=== PATIENT | male | born 1995 ===

== ENCOUNTER 2022-07-25 16:38 | Emergency (ER) | payer MEDICAID ==
[~2022-07-25] VITALS: Ht 165.1 cm; Wt 80.0 kg
[2022-07-25 18:17] LABS: GLUCOSE,POINT OF CARE 93 MG/DL (70-110)
[2022-07-25] MEDS ORDERED: LevETIRAcetam 500 MG TABLET PO ONE (18:30)
[2022-07-25] MEDS ORDERED: LEVE500T8 PO (18:40)
[2022-07-25 19:06] VITALS: BP 125/64
== END 2022-07-25 19:30 | disposition home or self-care (01) ==
LOC: EMS 16:40
DX: G40.509 Epileptic seizures related to external causes, not intractable, without status epilepticus (principal); F10.20 Alcohol dependence, uncomplicated; F12.90 Cannabis use, unspecified, uncomplicated
CPT/HCPCS: 82948; 82962; 93005; 99283